=== PATIENT | female | born 1995 | race Caucasian/White ===

== ENCOUNTER 2017-04-07 15:09 | Emergency (ER) | payer OTHER ==
[2017-04-07 15:18] VITALS: BP 152/95
[2017-04-07] MEDS ORDERED: traMADol 50 MG Tab PO ONE (15:59)
--- NOTE | 2017-04-07 16:01 | EDM.PDOC ---
ED HPI GENERAL MEDICAL PROBLEM - General Chief Complaint: Lower Extremity Injury/Pain Stated Complaint: R LEG PAIN,NUMBNESS Time Seen by Provider: 04/07/17 15:27 Source of Information: Reports: Patient History Limitations: Reports: No Limitations - History of Present Illness INITIAL COMMENTS - FREE TEXT/NARRATIVE: patient is a 21-year-old female presents ED complaining of right hamstring pain. Patient states yesterday while hiking and climbing some buttes. Patient slipped and fell landing awkwardly on her right leg. Pain is to the posterior aspect of her right upper leg. Described as a throbbing, sharp, and numbness. Pain is worsened with weightbearing and ambulation. No sensory/motor deficits distally. No pain to the knee and hip. She does have some pain that radiates up from the hamstring into her lower back. Patient did ambulate into the ED with minimal limp. She does have a history of straining ligament within her right knee. unclear which one. Pain is currently a 9 out of 10. Treatments [employer]: Reports: Acetaminophen Right Knee Pain Score (Numeric/FACES): 9 - Related Data Allergies Allergy/AdvReac Type Severity Reaction Status Date / Time amoxicillin Allergy Anaphylactic Verified 04/07/17 15:19 Shock cephalexin Allergy Anaphylactic Verified 04/07/17 15:19 Shock Penicillins Allergy Anaphylactic Verified 04/07/17 15:19 Shock Home Meds: Home Meds Omeprazole 40 mg PO DAILY 04/07/17 [History] traMADol [Ultram] 50 mg PO Q6H PRN #10 tablet 04/07/17 [Rx] Past Medical History Musculoskeletal History: Reports: Other (See Below) Other Musculoskeletal History: stretched ACL Social & Family History - Tobacco Use Smoking Status *Q: Never Smoker - Caffeine Use Caffeine Use: Reports: None - Recreational Drug Use Recreational Drug Use: No Review of Systems - Review of Systems Review Of Systems: ROS reveals no pertinent complaints other than HPI. ED EXAM, GENERAL - Physical Exam Exam: See Below Exam Limited By: No Limitations General Appearance: Alert, WD/WN, Mild Distress Ears: Hearing Grossly Normal Nose: Normal Inspection Throat/Mouth: Normal Voice, No Airway Compromise Neck: Normal Inspection, Supple Respiratory/Chest: No Respiratory Distress, Lungs Clear, Normal Breath Sounds, No Accessory Muscle Use Cardiovascular: Normal Peripheral Pulses, Regular Rate, Rhythm Peripheral Pulses: 2+: Posterior Tibial (R) Back Exam: Normal Inspection, Full Range of Motion, Other (mild pain to the right lateral lower back. minimal with palpation. No hip pain with palpation. ) Extremities: Normal Inspection, No Pedal Edema, Normal Capillary Refill, Other ( No sensory deficits noted. ) Neurological: Alert, Oriented, CN II-XII Intact, Normal Cognition, No Motor/ Sensory Deficits Psychiatric: Normal Affect, Normal Mood Skin Exam: Warm, Dry, Intact, Normal Color Front/Back Body Diagram: 1 - pinpoint tenderness along the hamstring from the knee up until the Buttocks. no swelling, deformity, ecchymosis noted. Increasing pain with flexion of the hamstring. Presumably patient has a hamstring strain. Course - Vital Signs Last Recorded V/S: Last Vital Signs Temp 97.5 F 04/07/17 15:15 Pulse 92 04/07/17 15:15 Resp 16 04/07/17 15:15 BP 152/95 H 04/07/17 15:15 Pulse Ox 98 04/07/17 15:15 - Orders/Labs/Meds Meds: Medications Discontinued Medications Generic Name Dose Route Start Last Admin Trade Name Freq PRN Reason Stop Dose Admin Tramadol HCl 50 mg 04/07/17 15:59 04/07/17 16:08 Ultram PO 04/07/17 16:00 50 mg ONETIME ONE Administration - Re-Assessments/Exams Free Text/Narrative Re-Assessment/Exam: Etiology of current complaints hamstring strain. Michael wrap applied. Will discharge patient home with instructions as documented. Departure - Departure Time of Disposition: 16:06 Disposition: Home, Self-Care 01 Condition: Good Clinical Impression: Hamstring muscle strain Qualifiers: Encounter type: initial encounter Laterality: right Qualified Code(s): S76.311A - Strain of muscle, fascia and tendon of the posterior muscle group at thigh level, right thigh, initial encounter - Discharge Information Prescriptions: traMADol [Ultram] 50 mg PO Q6H PRN #10 tablet PRN Reason: Pain (Severe 7-10) Instructions: Pain Medicine Instructions, [id number] Referrals: PCP,Not In Area [Primary Care Provider] - Forms: ED Department Discharge, ED Return to Work/School Form Additional Instructions: As discussed you have a hamstring strain that will take approximate 4-6 weeks to heal. Utilize the Micahel wrap as needed. Take ibuprofen and Tylenol in alternating fashion for pain. Utilize ice to affected area as needed. Refrain from any activities that cause worsening pain. Take tramadol 1 tab every 6 hours for pain not managed with the above therapies. Follow-up with PCP as needed when he returned home in the next week or 2. May return to the ED for any new or worsening symptoms.
== END 2017-04-07 16:40 | disposition home or self-care (01) ==
LOC: JD.ED 15:09
DX: S76.311A Strain of muscle, fascia and tendon of the posterior muscle group at thigh level, right thigh, initial encounter (principal); Z88.1 Allergy status to other antibiotic agents; Z88.0 Allergy status to penicillin; Z79.899 Other long term (current) drug therapy; W01.0XXA Fall on same level from slipping, tripping and stumbling without subsequent striking against object, initial encounter; Y93.01 Activity, walking, marching and hiking
CPT/HCPCS: 99283; A9270